=== PATIENT | male | born 1995 | race African-American/Black ===

== ENCOUNTER 2017-02-04 11:35 | Emergency (ER) | payer BC, OTHER ==
[2017-02-04] MEDS ORDERED: Ondansetron HCl/PF 4 MG/2 ML Vial ONE (11:58)
[2017-02-04] MEDS ORDERED: Famotidine In NaCl 20 mg/50 ml Premix Bag ONE (11:58)
[2017-02-04 11:59] LABS: #Basophils 0.1 thou/uL (0.0-0.2); #Lymphocytes 1.7 thou/uL (1.20-3.40); #Monocytes 1.1 thou/uL (0.11-0.59); #Neutrophils 5.6 thou/uL (1.40-6.50); %Basophils 1.1 % (0.0-1.0); %Eosinophils 0.2 % (0.0-10.0); %Lymphocytes 19.7 % (21.0-51.0); %Monocytes 12.9 % (0.0-10.0); Hemoglobin 15.1 g/dL (14.0-18.0); Mean Corpuscular HGB CONC 33.3 g/dL (32.0-36.0); Mean Corpuscular Hemoglobin 29.4 pg (27.0-31.0); Mean Corpuscular Volume 88.4 fl (80.0-94.0); Mean Platelet Volume 5.6 fL (7.4-10.4); Platelet Count 385 thou/uL (130-400); RBC Distribution Width 12.7 % (11.5-14.5); Red Blood Cell (RBC) Count 5.13 mill/uL (4.70-6.10); White Blood Cell (WBC) Count 8.4 thou/uL (4.8-10.8)
[2017-02-04 12:41] LABS: ALT (SGPT) 32 U/L (8-55); AST (SGOT) 23 U/L (5-34); Albumin 3.9 g/dL (3.5-5.0); Alkaline Phosphatase 71 U/L (40-150); Anion Gap 14 mmol/L (10-20); BUN (Urea Nitrogen) 17 mg/dL (8.9-20.6); Bilirubin, Total 0.5 mg/dL (0.2-1.2); Calc. Creatinine Clearance 0 mL/min (70-130); Carbon Dioxide 27 mmol/L (22-29); Chloride 105 mmol/L (98-107); Estimated GFR-MDRD 84; Glucose 96 mg/dL (70-105); Lipase 24 U/L (8-78); Potassium 3.5 mmol/L (3.5-5.1); Protein, Total 6.9 g/dL (6.0-8.3); Sodium 142 mmol/L (136-145)
== END 2017-02-04 13:23 | disposition home or self-care (01) ==
LOC: BURERS 11:35
DX: A09 Infectious gastroenteritis and colitis, unspecified (principal); R11.2 Nausea with vomiting, unspecified
CPT/HCPCS: 80053; 83690; 85025; 96365; 96375; J2405

== ENCOUNTER 2017-04-09 16:19 | Emergency (ER) | payer BC, OTHER ==
[2017-04-09] MEDS ORDERED: Ondansetron ODT 4 MG TAB ONE (16:46)
== END 2017-04-09 17:30 | disposition home or self-care (01) ==
LOC: BURERS 16:19
DX: K52.9 Noninfective gastroenteritis and colitis, unspecified (principal); F17.210 Nicotine dependence, cigarettes, uncomplicated
CPT/HCPCS: 99283; Q0162

== ENCOUNTER 2017-08-13 14:34 | Emergency (ER) | payer BC, MEDICAID, OTHER | END 2017-08-13 15:08 | disposition home or self-care (01) | LOC: BURERS 14:34 | DX: M10.9 Gout, unspecified (principal); F17.210 Nicotine dependence, cigarettes, uncomplicated | CPT/HCPCS: 99283 ==

== ENCOUNTER 2017-10-03 08:22 | Emergency (ER) | payer BC, OTHER ==
[2017-10-03] MEDS ORDERED: Ibuprofen 800 MG TAB ONE (09:09)
[2017-10-03] MEDS ORDERED: HYDROcodone/Acetaminophen 10/325 mg Tablet ONE (09:09)
== END 2017-10-03 09:17 | disposition home or self-care (01) ==
LOC: BURERS 08:22
DX: M10.9 Gout, unspecified (principal); I10 Essential (primary) hypertension; F90.9 Attention-deficit hyperactivity disorder, unspecified type; F17.210 Nicotine dependence, cigarettes, uncomplicated
CPT/HCPCS: 99283

== ENCOUNTER 2017-11-27 11:29 | Emergency (ER) | payer BC, OTHER ==
[2017-11-27] MEDS ORDERED: Ketorolac Tromethamine 60 MG/2 ML VIAL ONE (11:44)
--- NOTE | 2017-11-27 19:03 | RAD ---
RIGHT ANKLE THREE VIEWS: 11/27/17 No acute fracture was seen. The joint space seems normal. The articular surfaces are smooth. 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 The one seen here is indeterminate. The patient has a large talar beak anteriorly, an anatom ical variant. There is a rounded moira of bone just dorsal to the navicular which may be from old tra arslan. There is a suggestion of mild pes planus. Faintly seen on the plantar aspect beneath the metatar sals is a linear object. This could potentially be a soft tissue foreign body or a calcification in a tendon. IMPRESSION: Various chronic changes but no acute findings. POS: HOME
== END 2017-11-27 12:21 | disposition home or self-care (01) ==
LOC: BURERS 11:29
DX: M10.071 Idiopathic gout, right ankle and foot (principal); F90.9 Attention-deficit hyperactivity disorder, unspecified type; F17.210 Nicotine dependence, cigarettes, uncomplicated
CPT/HCPCS: 96372; J1885

== ENCOUNTER 2018-02-02 15:30 | Emergency (ER) | payer BC, OTHER ==
--- NOTE | 2018-02-02 18:15 | RAD ---
LEFT ANKLE THREE VIEWS: 02/02/2018 FINDINGS: No fracture or joint effusion is seen. The articular surfaces are smooth. The posterior process of the talus is ununited and somewhat rotated. It would not surprise me if there had been old trauma to this location. I doubt that it is acute. The other bony structures appear intact. IMPRESSION: Possible old trauma to the posterior process of the talus. POS: HOME
== END 2018-02-02 16:55 | disposition home or self-care (01) ==
LOC: BURERS 15:30
DX: S93.402A Sprain of unspecified ligament of left ankle, initial encounter (principal); M10.9 Gout, unspecified; F90.9 Attention-deficit hyperactivity disorder, unspecified type; F17.210 Nicotine dependence, cigarettes, uncomplicated; X50.0XXA Overexertion from strenuous movement or load, initial encounter

== ENCOUNTER 2018-02-10 08:01 | Emergency (ER) | payer BC, OTHER ==
[2018-02-10] MEDS ORDERED: Ibuprofen 800 MG TAB ONE (08:31)
[2018-02-10 08:35] LABS: Bilirubin Small (Negative); Blood, Urine Large (Negative); Clarity Turbid (Clear); Glucose, Urine (Dipstick) Negative (Negative); Leukocyte Small (Negative); Nitrite Positive (Negative); Protein, Urine (Dipstick) > or equal to 300 mg/dL (Neg-Trace); Specific Gravity, Urine 1.025 (1.005-1.030)
[2018-02-10 08:36] LABS: Bacteria/HPF 3+ HPF (None Seen); RBC/HPF GREATER THAN 50-TNTC HPF (0-3)
[2018-02-10 08:38] LABS: Crystals/HPF 2+ AMORPH PHOS HPF (Negative)
[2018-02-10 08:40] LABS: Squamous Epithelial 0-3 HPF (0-3)
[2018-02-10] MEDS ORDERED: cefTRIAXone\\ROCEPHIN 1 GM VIAL ONE (08:44)
[2018-02-10] MEDS ORDERED: Lidocaine 1% 20 ML MDV ONE (08:45)
== END 2018-02-10 09:00 | disposition home or self-care (01) ==
LOC: BURERS 08:01
DX: N30.01 Acute cystitis with hematuria (principal); M10.9 Gout, unspecified; F17.210 Nicotine dependence, cigarettes, uncomplicated
CPT/HCPCS: 81003; 81015; 87077; 87086; 87186; 87491; 87591; 96372; J0696; J2001

== ENCOUNTER 2018-05-03 08:17 | Emergency (ER) | payer BC, MEDICAID | END 2018-05-03 08:59 | disposition home or self-care (01) | LOC: BURERS 08:17 | DX: T16.1XXA Foreign body in right ear, initial encounter (principal); M10.9 Gout, unspecified; F17.210 Nicotine dependence, cigarettes, uncomplicated; X58.XXXA Exposure to other specified factors, initial encounter | CPT/HCPCS: 69200 ==

== ENCOUNTER 2018-05-26 09:44 | Emergency (ER) | payer BC, OTHER ==
[2018-05-26] MEDS ORDERED: Ibuprofen 800 MG TAB ONE (11:04)
[2018-05-26] MEDS ORDERED: methylPREDNISolone Acetate 40 mg/ml Vial ONE (11:04)
== END 2018-05-26 11:33 | disposition home or self-care (01) ==
LOC: BURERS 09:44
DX: M10.9 Gout, unspecified (principal); F17.210 Nicotine dependence, cigarettes, uncomplicated
CPT/HCPCS: 36415; 84550; 96372; J1030

== ENCOUNTER 2018-06-11 16:47 | Emergency (ER) | payer BC, OTHER ==
[2018-06-11 17:27] LABS: Clarity SLIGHTLY (Clear)
[2018-06-11 17:28] LABS: Bilirubin Negative (Negative); Blood, Urine Small (Negative); Glucose, Urine (Dipstick) Negative (Negative); Leukocyte Moderate (Negative); Nitrite Negative (Negative); Protein, Urine (Dipstick) 30 mg/dL (Neg-Trace)
[2018-06-11 17:34] LABS: Bacteria/HPF 1+ HPF (None Seen); Crystals/HPF None Seen HPF (Negative); Hyaline Casts/LPF NONE SEEN LPF (0-3 Hyaline); Other Casts/LPF None Seen LPF (0-3 Hyaline); Oval Fat Bodies/HPF None Seen HPF (None Seen); Renal Epithelial None Seen HPF (0-3); Sperm/HPF None Seen HPF (None Seen); Squamous Epithelial None Seen HPF (0-3); Transitional Epithelial NONE SEEN HPF (0-3); Trichomonas/HPF None Seen HPF (None Seen); WBC/HPF 21-50 HPF (0-3); Yeast-All Forms None Seen HPF (None Seen)
== END 2018-06-11 18:06 | disposition home or self-care (01) ==
LOC: BURERS 16:47
DX: N39.0 Urinary tract infection, site not specified (principal); I10 Essential (primary) hypertension; F90.9 Attention-deficit hyperactivity disorder, unspecified type; F98.8 Other specified behavioral and emotional disorders with onset usually occurring in childhood and adolescence; F91.3 Oppositional defiant disorder; F17.210 Nicotine dependence, cigarettes, uncomplicated
CPT/HCPCS: 81003; 81015; 87077; 87086; 87186; 99283

== ENCOUNTER 2018-06-23 08:30 | Emergency (ER) | payer BC, OTHER | END 2018-06-23 08:45 | disposition home or self-care (01) | LOC: BURERS 08:30 | DX: J02.9 Acute pharyngitis, unspecified (principal); F90.9 Attention-deficit hyperactivity disorder, unspecified type; F98.8 Other specified behavioral and emotional disorders with onset usually occurring in childhood and adolescence; F91.3 Oppositional defiant disorder; F17.210 Nicotine dependence, cigarettes, uncomplicated | CPT/HCPCS: 99283 ==

== ENCOUNTER 2018-07-25 13:01 | Emergency (ER) | payer BC, OTHER ==
[2018-07-25] MEDS ORDERED: Sulfameth/Trimethoprim DS 800-160mg TAB ONE (13:40)
== END 2018-07-25 13:42 | disposition home or self-care (01) ==
LOC: BURERS 13:01
DX: L03.011 Cellulitis of right finger (principal); F90.9 Attention-deficit hyperactivity disorder, unspecified type; F98.8 Other specified behavioral and emotional disorders with onset usually occurring in childhood and adolescence; F91.3 Oppositional defiant disorder; F17.210 Nicotine dependence, cigarettes, uncomplicated
CPT/HCPCS: 99283

== ENCOUNTER 2018-11-30 05:34 | Emergency (ER) | payer BC, OTHER ==
[2018-11-30] MEDS ORDERED: Ketorolac Tromethamine 60 MG/2 ML VIAL ONE (05:45)
[2018-11-30] MEDS ORDERED: predniSONE 20 MG TAB ONE (05:45)
== END 2018-11-30 05:58 | disposition home or self-care (01) ==
LOC: BURERS 05:34
DX: M10.9 Gout, unspecified (principal); F90.9 Attention-deficit hyperactivity disorder, unspecified type; F17.210 Nicotine dependence, cigarettes, uncomplicated
CPT/HCPCS: 96372; J1885

== ENCOUNTER 2018-12-25 07:31 | Emergency (ER) | payer BC, OTHER ==
[2018-12-25] MEDS ORDERED: Morphine 4 MG/ML VIAL ONE (07:47)
--- NOTE | 2018-12-25 10:05 | RAD ---
LEFT FOOT 3 VIEWS: Date: 0 12/25/18 No fracture seen. Bones and joints appear normal. No bony erosions or joint calcifications seen. IMPRESSION: No significant findings. POS: HOME
== END 2018-12-25 08:14 | disposition home or self-care (01) ==
LOC: BURERS 07:31
DX: M10.9 Gout, unspecified (principal); F90.9 Attention-deficit hyperactivity disorder, unspecified type; F17.210 Nicotine dependence, cigarettes, uncomplicated
CPT/HCPCS: 96372; J2270

== ENCOUNTER 2019-01-22 13:03 | Emergency (ER) | payer BC, OTHER ==
[2019-01-22] MEDS ORDERED: Ibuprofen 800 MG TAB ONE (13:27)
[2019-01-22] MEDS ORDERED: Acetaminophen 500 MG TAB ONE (13:27)
== END 2019-01-22 13:30 | disposition home or self-care (01) ==
LOC: BURERS 13:03
DX: M10.9 Gout, unspecified (principal); F90.9 Attention-deficit hyperactivity disorder, unspecified type; F17.210 Nicotine dependence, cigarettes, uncomplicated
CPT/HCPCS: 99283

== ENCOUNTER 2019-02-07 05:56 | Emergency (ER) | payer BC, OTHER ==
[2019-02-07] MEDS ORDERED: predniSONE 20 MG TAB ONE ×2 (06:22)
== END 2019-02-07 06:35 | disposition home or self-care (01) ==
LOC: BURERS 05:56
DX: M10.9 Gout, unspecified (principal); F17.210 Nicotine dependence, cigarettes, uncomplicated; F90.9 Attention-deficit hyperactivity disorder, unspecified type
CPT/HCPCS: 99283; J7512

== ENCOUNTER 2019-04-03 06:03 | Emergency (ER) | payer BC, OTHER ==
[2019-04-03] MEDS ORDERED: predniSONE 20 MG TAB ONE (07:19)
[2019-04-03] MEDS ORDERED: Ketorolac Tromethamine 60 MG/2 ML VIAL ONE (07:19)
--- NOTE | 2019-04-03 09:43 | RAD ---
LEFT ANKLE 3 VIEWS: Date: 04/03/19 HISTORY: Left ankle pain. FINDINGS/IMPRESSION: Comparison made with exam of 02/02/18. No acute fracture, dislocation, or bony destruction is seen. The ankle mortise is maintained. The unu nited posterior process of the talus is stable. This may be due to an unfused ossicle or remote traum a. [place]: [facility] [place]
== END 2019-04-03 07:26 | disposition home or self-care (01) ==
LOC: BURERS 06:03
DX: M10.9 Gout, unspecified (principal); F17.210 Nicotine dependence, cigarettes, uncomplicated; F90.9 Attention-deficit hyperactivity disorder, unspecified type
CPT/HCPCS: 96372; J1885; J7512

== ENCOUNTER 2019-09-13 08:51 | Emergency (ER) | payer BC, OTHER | END 2019-09-13 09:46 | disposition home or self-care (01) | LOC: BURERS 08:51 | DX: F90.9 Attention-deficit hyperactivity disorder, unspecified type (principal); M10.9 Gout, unspecified; F17.210 Nicotine dependence, cigarettes, uncomplicated | CPT/HCPCS: 99281 ==

== ENCOUNTER 2019-11-24 12:14 | Emergency (ER) | payer BC, OTHER | END 2019-11-24 13:04 | disposition home or self-care (01) | LOC: BURERS 12:14 | DX: J02.0 Streptococcal pharyngitis (principal); F90.9 Attention-deficit hyperactivity disorder, unspecified type; F17.210 Nicotine dependence, cigarettes, uncomplicated; M10.9 Gout, unspecified | CPT/HCPCS: 87430; 87804; 99283 ==

== ENCOUNTER 2019-11-27 18:08 | Emergency (ER) | payer BC, OTHER | END 2019-11-27 19:10 | disposition home or self-care (01) | LOC: BURERS 18:08 | DX: M10.9 Gout, unspecified (principal); F90.9 Attention-deficit hyperactivity disorder, unspecified type; F17.210 Nicotine dependence, cigarettes, uncomplicated | CPT/HCPCS: 99283 ==

== ENCOUNTER 2020-03-25 09:39 | Emergency (ER) | payer BC, OTHER ==
[2020-03-25] MEDS ORDERED: methylPREDNISolone Sod Succ/PF 125 MG/2 ML VIAL ONE (10:10)
== END 2020-03-25 10:35 | disposition home or self-care (01) ==
LOC: BURERS 09:39
DX: M10.9 Gout, unspecified (principal); F90.9 Attention-deficit hyperactivity disorder, unspecified type; F17.210 Nicotine dependence, cigarettes, uncomplicated; Z71.6 Tobacco abuse counseling
CPT/HCPCS: 93005; 96372; 99406; J2930

== ENCOUNTER 2020-11-15 12:51 | Emergency (ER) | payer OTHER | END 2020-11-15 13:22 | disposition home or self-care (01) | LOC: BURERS 12:51 | DX: S39.012A Strain of muscle, fascia and tendon of lower back, initial encounter (principal); M10.9 Gout, unspecified; F17.210 Nicotine dependence, cigarettes, uncomplicated | CPT/HCPCS: 99281 ==

== ENCOUNTER 2020-11-27 12:39 | Emergency (ER) | payer OTHER ==
[2020-11-27] MEDS ORDERED: Ondansetron ODT 4 MG TAB ONE (12:58)
== END 2020-11-27 13:15 | disposition home or self-care (01) ==
LOC: BURERS 12:39
DX: R11.2 Nausea with vomiting, unspecified (principal); Z79.899 Other long term (current) drug therapy; M10.9 Gout, unspecified; F17.210 Nicotine dependence, cigarettes, uncomplicated
CPT/HCPCS: 99283; Q0162

== ENCOUNTER 2021-03-12 09:34 | Emergency (ER) | payer OTHER ==
[2021-03-12] MEDS ORDERED: Ketorolac Tromethamine 30 MG/ML VIAL ONE (09:42)
== END 2021-03-12 10:25 | disposition home or self-care (01) ==
LOC: BURERS 09:34
DX: S92.132A Displaced fracture of posterior process of left talus, initial encounter for closed fracture (principal); M10.9 Gout, unspecified; F17.210 Nicotine dependence, cigarettes, uncomplicated; X50.1XXA Overexertion from prolonged static or awkward postures, initial encounter
CPT/HCPCS: 29515; 96372; J1885

== ENCOUNTER 2021-03-13 19:40 | Emergency (ER) | payer OTHER ==
[2021-03-13] MEDS ORDERED: Morphine 10 MG/ML VIAL ONE (19:49)
[2021-03-13] MEDS ORDERED: Acetaminophen/Codeine 30-300mg Tablet ONE (20:09)
== END 2021-03-13 20:16 | disposition home or self-care (01) ==
LOC: BURERS 19:40
DX: S92.102A Unspecified fracture of left talus, initial encounter for closed fracture (principal); M10.9 Gout, unspecified
CPT/HCPCS: 96372; 99283; J2270

== ENCOUNTER 2021-04-03 06:22 | Emergency (ER) | payer OTHER ==
[2021-04-03] MEDS ORDERED: Ondansetron PF 4 MG/2 ML Vial ONE (07:32)
[2021-04-03 17:31] LABS: SARS-CoV-2 PCR by NAA Not Detected (NotDetected)
== END 2021-04-03 07:15 | disposition home or self-care (01) ==
LOC: BURERS 06:22
DX: R11.2 Nausea with vomiting, unspecified (principal); R19.7 Diarrhea, unspecified; R10.9 Unspecified abdominal pain; R05 Cough; Z20.822 Contact with and (suspected) exposure to COVID-19
CPT/HCPCS: 96374; J2405; U0003; U0005